=== PATIENT | female | born 1980 | race Caucasian/White ===

== ENCOUNTER → 2022-04-10 10:47 | Outpatient (CLI) | payer SELFPAY ==
--- NOTE | ~2022-04-10 | US_ITS ---
EXAMINATION: US venous doppler LE RT DATE: 04/10/2022 11:45 INDICATION: Right lower limb pain, swelling and palpable lump at the medial lower leg. Several days o f immobility. TECHNIQUE: Grayscale ultrasound images without and with compression and Doppler ultrasound images of the right lower extremity veins were obtained. COMPARISON: None. FINDINGS: The visualized portions of right common femoral vein, profunda (deep) femoral vein, femoral vein, pop liteal vein, peroneal trunk, posterior tibial veins, peroneal veins, gastrocnemius vein soleus vein a nd greater saphenous vein outflow are patent. There are however a couple paired thrombosed veins more peripherally within the medial head of the gastrocnemius at the region of palpable abnormality. IMPRESSION: 1. Deep venous thrombosis within a couple peripheral intramuscular veins within the medial head of t he gastrocnemius. The more proximal right gastrocnemius vein and the remaining deep veins of the righ t lower limb remain patent. Dr. Sanderson discussed these findings with Dr. Wilcox at 11:57 AM. Reviewed, dictated and finalized at location A. IMPRESSION: 1. Deep venous thrombosis within a couple peripheral intramuscular veins withi n the medial head of the gastrocnemius. The more proximal right gastrocnemius v ein and the remaining deep veins of the right lower limb remain patent. Dr. Edd chand discussed these findings with Dr. Wilcox at 11:57 AM.
== END ==
PROVIDERS: PCP Chiropractor; Visit Provider Chiropractor
DX: I82.461 Acute embolism and thrombosis of right calf muscular vein (principal)
CPT/HCPCS: 93971

== ENCOUNTER 2025-03-29 16:14 | Outpatient (CLI) | payer SELFPAY ==
--- NOTE | ~2025-03-29 | XR_ITS ---
CHEST RADIOGRAPH, PA AND LATERAL CLINICAL HISTORY: hilar lymphadenopathy . COMPARISON: None available TECHNIQUE: PA and lateral views of the chest. FINDINGS The cardiomediastinal silhouette is unremarkable. The lungs are clear. IMPRESSION: No focal infiltrate or effusion. Reviewed, dictated and finalized at location A.
== END 2025-03-29 16:15 | disposition home or self-care (01) ==
PROVIDERS: PCP Chiropractor; Visit Provider Chiropractor
DX: I89.0 Lymphedema, not elsewhere classified (principal)
CPT/HCPCS: 71046